=== PATIENT | female | born 1955 | race African-American/Black ===

== ENCOUNTER 2023-08-08 12:35 | Emergency (ER) | payer BC ==
[~2023-08-08] VITALS: Ht 162.6 cm; Wt 78.0 kg
[2023-08-08 12:46] VITALS: O2SAT 100
[2023-08-08] MEDS: MINERAL OIL 30ML BOTTLE TOP ONE (14:30)
[2023-08-08] MEDS: IBUPROFEN 400MG TABLET PO ONE (15:00)
[2023-08-08] MEDS ORDERED: OFLO5DRO4 RIGHT EAR (16:06)
[2023-08-08] MEDS ORDERED: SALI7GEL TP (16:06)
[2023-08-08 17:15] VITALS: BP 165/98; PULSE 73; RESP 18; TEMP 97.7
== END 2023-08-08 18:08 | disposition home or self-care (01) ==
LOC: ER 12:35
DX: T16.1XXA Foreign body in right ear, initial encounter (principal); I10 Essential (primary) hypertension; W44.9XXA Unspecified foreign body entering into or through a natural orifice, initial encounter; Y93.89 Activity, other specified; Y92.89 Other specified places as the place of occurrence of the external cause; Y99.8 Other external cause status
CPT/HCPCS: 69200; 99284